=== PATIENT | female | born 1995 | race Two or more races ===

== ENCOUNTER 2024-06-03 10:00 | Outpatient (RCR) | payer MEDICAID, SELFPAY ==
[2024-06-03 10:40] VITALS: BP 109/66; PULSE 70; RESP 16; TEMP 36.9
--- NOTE | 2024-06-03 11:39 | XR_ITS ---
Examination: Biophysical profile, ultrasound Date and time of exam: June 03, 2024 1152 hours INDICATIONS: Diagnosis small for gestational age Technique: Multiple transabdominal sonographic images of the pelvis abdomen obtained. Attention is directed to the breathing movement, gross body movement, amniotic fluid volume and tone. Findings: Amniotic fluid index 3.1 cm Total biophysical profile is 6 of 8. breathing movement is 2. Gross body movement is 2. tone is 2. Qualitative amniotic fluid volume is 0 Impression: Biophysical profile is 6 of 8.
[2024-06-03] MEDS: BETAMET ACET/BETAMET NA PH (Celestone) 6 MG/ML VIAL 12 MG IM (13:36)
== END 2024-06-04 23:59 | disposition home or self-care (01) ==
LOC: S4S1 10:00
PROVIDERS: PCP Family Medicine; Referring Provider Nurse Practitioner Women's Health; Visit Provider Nurse Practitioner Women's Health
DX: O36.5930 Maternal care for other known or suspected poor fetal growth, third trimester, not applicable or unspecified (principal); Z3A.35 35 weeks gestation of pregnancy
CPT/HCPCS: 59025; 76819; 96372; J0702

== ENCOUNTER 2024-06-04 13:26 | Observation (INO) | payer MEDICAID, SELFPAY ==
[2024-06-04] VITALS (36 sets, daily range): BP systolic 96–111; BP diastolic 52–63; PULSE 63–79; RESP 16–98; TEMP 36.6–36.9; O2SAT 93–100; BMI 25.7
--- NOTE | 2024-06-04 13:36 | XR_ITS ---
Examination: Complete OB ultrasound greater than 14 weeks Date and time of exam: June 04, 2024 1344 hours INDICATIONS: Diagnosis small for gestational age, low amniotic fluid index 3.1 cm 1 ultrasound June 03, 2024 Findings: Viable intrauterine single fetus with single amniotic sac presentation cephalic Cardiac motion 143 BPM Placenta posterior grade 1 Umbilical cord insertion 3 vessel seen Amniotic fluid index 4.6 cm Cervix 3.4 cm closed Ovaries obscured by bowel gas. Composite estimated gestational age based on BPD, head circumference, abdominal circumference, femur length is 32 weeks 4 days Estimated weight 1881 g. Survey of intracranial anatomy, spinal anatomy, abdominal anatomy, four-chamber heart performed with no abnormalities identified. Impression: Viable intrauterine gestation cephalic presentation Amniotic fluid index 4.6 cm.
[2024-06-04] MEDS: BETAMET ACET/BETAMET NA PH (Celestone) 6 MG/ML VIAL 12 MG IM (14:15)
[2024-06-04 15:59] LABS: Basophils % (Auto) 0 % (0-2.5); Eosinophils % (Auto) 0 % (0-10); Hematocrit 32.6 % (36.0-46.0); Hemoglobin 10.7 g/dL (12.0-16.0); Immature Granulocytes % (Auto) 1 % (0-0); Immature Granulocytes Auto 0.18 Thou/mm3 (0.00-0.00); Lymphocytes # (Auto) 1.5 Thou/mm3 (1.0-4.8); Lymphocytes % (Auto) 8 % (10-50); Mean Corpuscular HGB Conc 32.8 g/dl (31.0-37.0); Mean Corpuscular Hemoglobin 26.3 pg (25.0-35.0); Mean Corpuscular Volume 80 fL (80-100); Monocytes # (Auto) 1.2 Thou/mm3 (0.0-0.8); Monocytes % (Auto) 6 % (0-12); Neutrophils # (Auto) 16.7 Thou/mm3 (1.8-7.7); Neutrophils % (Auto) 85 % (37-80); Nucleated Red Blood Cell % 0 /100 WBC (0); Platelet Count 239 Thou/mm3 (140-440); RDW Standard Deviation 44.6 fL (36.4-46.3); Red Blood Count 4.07 Miln/mm3 (4.00-5.20); White Blood Count 19.7 Thou/mm3 (3.6-11.0)
[2024-06-04 16:38] LABS: Syphilis Nonreactive (Nonreactive)
[2024-06-04] MEDS: RINGERS LACTATED 1000 ML 1,000 ML 100 ML IV (17:27)
[2024-06-04 18:06] LABS: ROM Kit Lot # 578010271; ROM Swab Mixed By: ASTOA1; Rupture of Fetal Membranes Negative (Negative); Swb Mxed in Solvent 1 min? Yes
[2024-06-05] VITALS (7 sets, daily range): BP systolic 102–111; BP diastolic 57–60; PULSE 61–79; RESP 16–18; TEMP 36.9
[2024-06-05] MEDS: RINGERS LACTATED 1000 ML 1,000 ML 100 ML IV (03:19)
--- NOTE | 2024-06-05 05:47 | PD.LDANTE ---
Documentation for date of: 06/04/24 OB Labor/Induct. HPI History of Present Illness : 4 Para: 2 Term pregnancies: 2 pregnancies: 0 Living children: 2 History of Abortions: Spontaneous and Elective: 1 History of Vaginal deliveries: 2 History of sections: No History of : No ANNA: 07/07/24 Gestational Age (weeks): 35 Gestational Age (days): 3 History of present illness: Patient is a [place]alander-speaking 29-year-old -0-1-2 history of vaginal delivery x 2 in the past who presented for nonstress test for gestational diabetes. She was seen 03 June and her fluid was 3.6. She was given an injection of betamethasone and told to come back on the . Her BING was 4.6. She is 35 3/7 weeks. The baby was measuring 32 weeks approximately 4 pounds. Patient was admitted overnight for observation, possible induction of labor if the fluid continues to be low. AmniSure was negative. History of Present Adequate Care: Yes Obstetrical complications: gestational diabetes Narrative: Baby has been measuring small according to [facility]. The plan was to induce at 38 weeks. Labs Maternal Blood Type: A Pos Labs: Positive: Rubella Titre, Negative: Hepatitis B, HIV, Chlamydia and Gonorrhea and Unknown: Group Beta Strep Review of Systems Constitutional Comments: Patient is alert and oriented x 3 she reports good movement she denies vaginal bleeding leaking fluid or contractions Past Medical History Surgical History SURGICAL: Negative Section Meds Home Medications and Allergies Home Medications ?Medication ?Instructions ?Recorded ?Confirmed ?Type vit no.95-ferrous 1 tab PO QDAY 06/04/24 06/04/24 History fumarate 28 mg-folic acid 800 mcg tablet () Allergies Allergy/AdvReac Type Severity Reaction Status Date / Time No Known Allergies Allergy Verified 06/04/24 15:05 OB Exam Physical Exam Vital signs: Temp Pulse Resp BP Pulse Ox O2 Del Method 98.4 F 64 16 107/59 L 98 Room Air 06/05/24 03:25 06/05/24 05:01 06/05/24 03:25 06/05/24 05:01 06/04/24 22:55 06/04/24 19:05 Constitutional Constitutional: no acute distress Routine Abdominal Exam Abdominal: Present soft and normoactive bowel sounds Comments: Fundal height approximately 30 weeks Detailed Labor and Delivery Exam Effacement (%): Thick Cervix position: mid station: -2 Consistency: firm Presentation: Vertex Membranes: intact monitor accelerations: 15x15 monitor decelerations: None terminal block assembler variability: Moderate (11-25) Contraction frequency (min): None Routine Extremities Exam Comments: No significant edema or even erythema of lower extremities OB Results Labs 06/04/24 15:43 Labs: Short CBC 06/04/24 Range/Units 15:43 WBC 19.7 H (3.6-11.0) Thou/mm3 Hgb 10.7 L (12.0-16.0) g/dL Hct 32.6 L (36.0-46.0) % Plt Count 239 (140-440) Thou/mm3 OB Assessment & Plan Assessment and Plan (1) : Status: Acute (2) Oligohydramnios antepartum: Status: Acute (3) Small for gestational age fetus: Status: Acute Assessment and plan: Patient has been followed at [facility] for small for gestational age infant. Baby currently measuring 4 pounds approximately and 32-4/7 weeks. Given betamethasone 318 and 319. Repeat ultrasound today for fluid check. OB Ultrasound Indication Indication: Check BING OB Ultrasound Ultrasound technique: transabdominal Gestational sac assessment: Presence, location, size, shape: Ultrasounds reviewed revealing BING of 3.1 on 05/24/2024 and BING of 4.6 on 06/04/2024 weight measuring 32-4/7 weeks (1) Qualifiers: Weeks of gestation: 35 weeks Qualified Code(s): Z3A.35 - 35 weeks gestation of (2) Oligohydramnios antepartum Qualifiers: Fetus number: single or unspecified fetus Qualified Code(s): O41.00X0 - Oligohydramnios, unspecified trimester, not applicable or unspecified
--- NOTE | 2024-06-05 07:00 | XR_ITS ---
Examination: Complete OB ultrasound greater than 14 weeks Date and time of exam: June 05, 2024 0830 hours INDICATIONS: labor, diagnosis low amniotic fluid, diagnosis growth retardation Findings: Viable intrauterine single fetus with single amniotic sac presentation cephalic spine maternal right Cardiac motion 129 BPM Placenta posterior grade 2 Umbilical cord insertion 3 vessel seen Amniotic fluid index 3.3 cm Cervix 4.3 cm closed Ovaries obscured by bowel gas. Composite estimated gestational age based on BPD, head circumference, abdominal circumference, femur length is 33 weeks 6 days Estimated weight 2095 g. Survey of intracranial anatomy, spinal anatomy, abdominal anatomy, four-chamber heart performed with no abnormalities identified. Impression: Viable intrauterine gestation cephalic presentation Amniotic fluid index 3.3 cm.
[2024-06-05 07:11] LABS: Basophils % (Auto) 0 % (0-2.5); Eosinophils % (Auto) 0 % (0-10); Hematocrit 31.2 % (36.0-46.0); Hemoglobin 10.2 g/dL (12.0-16.0); Immature Granulocytes % (Auto) 1 % (0-0); Immature Granulocytes Auto 0.19 Thou/mm3 (0.00-0.00); Lymphocytes # (Auto) 1.4 Thou/mm3 (1.0-4.8); Lymphocytes % (Auto) 9 % (10-50); Mean Corpuscular HGB Conc 32.7 g/dl (31.0-37.0); Mean Corpuscular Hemoglobin 26.4 pg (25.0-35.0); Mean Corpuscular Volume 81 fL (80-100); Monocytes # (Auto) 0.7 Thou/mm3 (0.0-0.8); Monocytes % (Auto) 5 % (0-12); Neutrophils # (Auto) 13.9 Thou/mm3 (1.8-7.7); Neutrophils % (Auto) 85 % (37-80); Nucleated Red Blood Cell % 0 /100 WBC (0); Platelet Count 215 Thou/mm3 (140-440); RDW Standard Deviation 45.3 fL (36.4-46.3); Red Blood Count 3.87 Miln/mm3 (4.00-5.20); White Blood Count 16.3 Thou/mm3 (3.6-11.0)
--- NOTE | 2024-06-05 08:17 | XR_ITS ---
Examination: Biophysical profile, ultrasound Date and time of exam: June 05, 2024 0849 hours INDICATIONS: Diagnosis labor, diagnosis low amniotic fluid index, diagnosis growth retardation Technique: Multiple transabdominal sonographic images of the pelvis abdomen obtained. Attention is directed to the breathing movement, gross body movement, amniotic fluid volume and tone. Findings: Amniotic fluid index 3.2 cm Total biophysical profile is 6 of 8. breathing movement is 2. Gross body movement is 2. tone is 2. Qualitative amniotic fluid volume is 0 Impression: Biophysical profile is 6 of 8.
--- NOTE | 2024-06-05 10:10 | ESDS_ITS ---
DS: Providers Provider Date of admission: 06/04/24 15:33 Primary care physician: Physician No Primary/Family Admitting Provider: Radha Wong MD ([facility]) Attending Provider on Admission: Enrique Sanchez MD Attending Provider on DC: Enrique Sanchez MD Discharging Provider: Enrique Sanchez MD DS: Diagnosis Problem List Completed Was Problem List Reviewed/Reconciled?: Yes Summary/Hosp Course Brief History: 29 y/o @35w2d here admitted for observation for oligohydramnios. Patient has recieved 2 doses of betamethasone . Pt has been following up with MFMfor weekly dopplers for IUGR ( EFW 9%, AC 7%). she has an appointment today with [facility] . Pt denied any bleeding , leaking or contractions . The FHT category 1 over night , occasional variable. Today the Ultrasound was repeated , MVP 2cm. Given amnisure was negative, no suspicion of PROM. Patient per ACOG will be induced for oligohydramnios at 36 weeks. IUGR with normal dopplers can wait for 38 weeks. She has an appointemnt for MFM today , patient will attend [facility] appointemnt today , depending upon the dopplers and BING , patient will be booked for IOL Status at Discharge Cognitive/behavioral status at discharge: stable Time Spent with Patient Time attestation: Total time spent providing and/or coordinating discharge services: Exam Vital Signs Temp Pulse Resp BP Pulse Ox O2 Del Method 98.4 F 79 18 111/60 98 Room Air 06/05/24 06:56 06/05/24 09:05 06/05/24 06:56 06/05/24 09:05 06/04/24 22:55 06/04/24 19:05 Discharge Plan Plan Patient Disposition: HOME (Self Care) Prescriptions/Referrals Prescriptions/Med Rec: No Action PNV cmb#95-ferrous fumarate-FA [] 28 mg iron- 800 mcg tablet 1 tab PO QDAY Referrals: No Primary/Family,Physician [Primary Care Provider] - Patient/Caregiver Discharge Instructions Print Language: Polish Stand Alone Forms: Martha Award Info., Patient Portal Info Letter Discharge Order Discharge Orders: Discharge (Routine); Ordered 06/05/24 Ordered By: Enrique Sanchez Planned Discharge Date 06/05/24
== END 2024-06-05 10:38 | disposition home or self-care (01) ==
PROVIDERS: Admitting Provider Obstetrics & Gynecology; Referring Provider Obstetrics & Gynecology; Visit Provider Obstetrics & Gynecology
DX: O41.03X0 Oligohydramnios, third trimester, not applicable or unspecified (principal); O24.419 Gestational diabetes mellitus in pregnancy, unspecified control; O36.5930 Maternal care for other known or suspected poor fetal growth, third trimester, not applicable or unspecified; Z3A.35 35 weeks gestation of pregnancy
CPT/HCPCS: 36415; 59025; 59899; 76805; 76819; 84112; 85025; 86780; 86850; 86900; 86901; 87081; 96360; 96361; 96372; J0702; J7120

== ENCOUNTER 2024-06-11 13:01 | Outpatient (RCR) | payer MEDICAID, SELFPAY ==
--- NOTE | 2024-06-11 13:35 | XR_ITS ---
Examination: Biophysical profile, ultrasound Date and time of exam: June 11, 2024 1340 hours INDICATIONS: Small for gestational age diagnosis, also diagnosis history low amniotic fluid index Technique: Multiple transabdominal sonographic images of the pelvis abdomen obtained. Attention is directed to the breathing movement, gross body movement, amniotic fluid volume and tone. Findings: Amniotic fluid index 3.5 cm Total biophysical profile is 6 of 8. breathing movement is 2. Gross body movement is 2. tone is 2. Qualitative amniotic fluid volume is 0 Impression: Biophysical profile is 6 of 8.
[2024-06-11 14:30] VITALS: BP 120/59; PULSE 81; RESP 18; TEMP 36.8
== END 2024-06-11 23:59 | disposition home or self-care (01) ==
LOC: S4S1 13:01
PROVIDERS: Referring Provider Nurse Practitioner Women's Health; Visit Provider Nurse Practitioner Women's Health
DX: O36.5930 Maternal care for other known or suspected poor fetal growth, third trimester, not applicable or unspecified (principal); Z3A.36 36 weeks gestation of pregnancy
CPT/HCPCS: 59025; 76819; J2795; J3010

== ENCOUNTER 2024-06-11 15:33 | Inpatient (IN) | payer MEDICAID, SELFPAY ==
[2024-06-11] VITALS (95 sets, daily range): BP systolic 0–122; BP diastolic 0–81; PULSE 57–87; RESP 18; TEMP 36.7; O2SAT 96–99; BMI 26.0
--- NOTE | 2024-06-11 16:43 | ESHP_ITS ---
Documentation for date of: 06/11/24 OB Labor/Induct. HPI History of Present Illness Chief complaint: 28 y/o 36w 2d admitted for Oligohydramnios, FGR and GDM : 4 Para: 2 Term pregnancies: 2 pregnancies: 0 Living children: 2 History of Abortions: Spontaneous and Elective: 1 History of Vaginal deliveries: 2 History of sections: No History of : No ANNA: 06/06/24 Gestational Age (weeks): 36 Gestational Age (days): 2 Indication for induction: medical complication History of present illness: 28 y/o 36w 2d presents to L&D for an NST and BPP, NST reactive, however BPP is 6/8 BING 3.[address] Sanchez and was decided that it is patient's best interest to induce today due to multiple risk factors Oligohydranmnios, FGR at 9%ile and GDM. [facility] sono from 06/05/24 pt's BING was 5.97, now significantly has dropped to 3.5. Pt received betamethasone x2 on 06/03 and 06/04. Pt has been having biweekly NST and weekly BPPs, pt also has weekly dopplers at [facility] which have been normal. GBS is positive. Pt also has anemia. Pt has a hx of nvdx 2 and 1 SAB. EFW 2400g. 05/23/24: [facility] sono fetus is FGR 9%ile, AC is 7%ile, umbilical artery dopplers are normal, BPP 8/8.? 06/05/24: [facility] sono SIUP 35w 3, cephalic, Placenta posterior, no previa, Borderline Oligohydramnios, BING is 5.97 cm. BPP is 8/8, umbilical artery dopplers are normal. Continue biweekly NST, Pt encourage to have more oral hydration, Repeat BING in 1 week. Continue FKC, if FGR and abnormal dopplers plan to deliver by 37 weeks. History of Present Dating criteria: based on LMP only Adequate Care: Yes Ultrasounds: abnormal US findings ( growth at 9%ile, and AC is at 7%ile) Obstetrical complications: gestational diabetes (Diet ) and growth restriction Medical complications: other (Oligohydramnios and Anemia) Labs Maternal Blood Type: A Pos Labs: Positive: Rubella Titre and Group Beta Strep, Negative: RPR, Hepatitis B, HIV, Chlamydia and Gonorrhea and Unknown: Covid-19 Review of Systems Review of Systems Systems Reviewed: All systems reviewed, normal except as documented Past Medical History Surgical History SURGICAL: Negative Section Meds Home Medications and Allergies Home Medications ?Medication ?Instructions ?Recorded ?Confirmed ?Type vit no.95-ferrous 1 tab PO QDAY 06/04/2405/18 History fumarate 28 mg-folic acid 800 mcg tablet () Allergies Allergy/AdvReac Type Severity Reaction Status Date / Time No Known Allergies Allergy Verified 06/11/24 16:01 OB Exam Physical Exam Vital signs: Pulse BP 69 108/74 06/11/24 16:43 06/11/24 16:43 Constitutional Constitutional: no acute distress Routine HEENT Exam Head: Present normocephalic and atraumatic Eye: Present EOMI, PERRL and normal accommodation ENT: Present mucous membranes moist Routine Neck Exam Neck: Present full ROM Routine Respiratory Exam Respiratory: Absent respiratory distress Routine Cardiovascular Exam Cardiovascular: Present RRR Routine Abdominal Exam Abdominal: Present soft Comments: Gravid Uterus EFW 2400g Routine Exam External: Present normal urethra appearance; Absent lesions Detailed Labor and Delivery Exam Dilation (cm): 1 Effacement (%): thick Cervix position: posterior station: -3 Consistency: medium Presentation: Vertex Membranes: intact Baseline heart rate: 130 monitor accelerations: 15x15 monitor decelerations: None terminal operator variability: Moderate (11-25) Routine Extremities Exam Extremities: Present full ROM Routine Back/Spine/Pelvis Exam Back/Spine: Present full ROM Routine Skin Exam Skin: Present intact, dry and warm Routine Neurological Exam Neurological: Present alert, oriented X3 and CN II-XII intact Routine Psychiatric Exam Psychiatric: Present normal affect and normal thought process OB Results Labs 06/11/24 15:50 OB Assessment & Plan Assessment and Plan (1) Oligohydramnios antepartum: Status: Acute (2) Poor growth affecting management of mother in third trimester: Status: Acute (3) Diet controlled gestational diabetes mellitus (GDM): Status: Acute (4) with 36 completed weeks gestation: Status: Acute (5) Anemia affecting in third trimester: Status: Acute Additional Plan Induction method: per misoprostol protocol Plan: induction, anticipate NVD, GBS prophylaxis tx and consult prn Additional Plan Comment: Routine admit orders Consult anesthesia for an epidural Continuous EFM Dr. Sanchez updated (1) Oligohydramnios antepartum Qualifiers: Fetus number: single or unspecified fetus Qualified Code(s): O41.00X0 - Oligohydramnios, unspecified trimester, not applicable or unspecified (2) Poor growth affecting management of mother in third trimester Qualifiers: Fetus number: single or unspecified fetus Qualified Code(s): O36.5930 - Maternal care for other known or suspected poor growth, third trimester, not applicable or unspecified (3) Diet controlled gestational diabetes mellitus (GDM) Qualifiers: Trimester: third trimester Qualified Code(s): O24.410 - Gestational diabetes mellitus in , diet controlled
[2024-06-11] MEDS: MISOPROSTOL 50 mCg TABLET PO ×2 (16:48→20:59)
[2024-06-11 16:58] LABS: Basophils % (Auto) 0 % (0-2.5); Eosinophils # (Auto) 0.1 Thou/mm3 (0.0-0.5); Eosinophils % (Auto) 1 % (0-10); Hematocrit 34.7 % (36.0-46.0); Hemoglobin 11.4 g/dL (12.0-16.0); Immature Granulocytes % (Auto) 1 % (0-0); Immature Granulocytes Auto 0.09 Thou/mm3 (0.00-0.00); Lymphocytes # (Auto) 2.1 Thou/mm3 (1.0-4.8); Lymphocytes % (Auto) 16 % (10-50); Mean Corpuscular HGB Conc 32.9 g/dl (31.0-37.0); Mean Corpuscular Hemoglobin 25.8 pg (25.0-35.0); Mean Corpuscular Volume 79 fL (80-100); Monocytes % (Auto) 8 % (0-12); Neutrophils # (Auto) 9.6 Thou/mm3 (1.8-7.7); Neutrophils % (Auto) 74 % (37-80); Nucleated Red Blood Cell % 0 /100 WBC (0); Platelet Count 245 Thou/mm3 (140-440); RDW Standard Deviation 44.5 fL (36.4-46.3); Red Blood Count 4.42 Miln/mm3 (4.00-5.20); White Blood Count 12.9 Thou/mm3 (3.6-11.0)
[2024-06-11] MEDS: Ampicillin Inj 2,000 MG in SODIUM CHLORIDE 0.9% (POP) 100 ML 200 MG IV (17:04)
[2024-06-11] MEDS: RINGERS LACTATED 1000 ML 1,000 ML 100 ML IV (20:14)
[2024-06-11] MEDS: Ampicillin Inj 1,000 MG in SODIUM CHLORIDE 0.9% (Popper) 50 ML 50 MG IV (20:59)
[2024-06-12] VITALS (242 sets, daily range): BP systolic 0–148; BP diastolic 0–99; PULSE 54–100; RESP 17–19; TEMP 36.6–36.9; O2SAT 82–100
[2024-06-12] MEDS: Ampicillin Inj 1,000 MG in SODIUM CHLORIDE 0.9% (Popper) 50 ML 50 MG IV ×5 (00:59→18:17)
[2024-06-12] MEDS: MISOPROSTOL 50 mCg TABLET PO ×2 (00:59→05:02)
[2024-06-12 03:59] LABS: Syphilis Nonreactive (Nonreactive)
--- NOTE | 2024-06-12 10:09 | PD.LDPN ---
Documentation for date of: 06/12/24 OB Labor Progress Note Pain Control Pain control: tolerating well Pelvic Exam Dilation (cm): 3 Effacement (%): 60 station: -3 Amniotic membrane status: Intact Contractions Monitor mode: External Contraction frequency: 4-8 Contraction duration: 40-60 Contraction phase: Contraction Contraction intensity: Moderate Status status: Category l Assessment and Plan Assessment: induction ongoing Plan OB labor note: begin Pitocin augmentation Comments: Doing well, making cervical change after 4 doses of cytotec Continue with pitocin per protocol Updated Dr. Sanchez
[2024-06-12] MEDS: OXYTOCIN in NS 30 units 30 UNIT/500 ML BAG IV (10:18)
--- NOTE | 2024-06-12 15:48 | PD.LDPN ---
Documentation for date of: 06/12/24 OB Labor Progress Note Pain Control Pain control: epidural Pelvic Exam Dilation (cm): 8 Effacement (%): 80 station: 0 Amniotic membrane status: Ruptured (AROM- clear bloody) Contractions Monitor mode: External Contraction frequency: 2-3 Contraction duration: 40-60 Contraction phase: Contraction Contraction intensity: Strong Status status: Category l Assessment and Plan Assessment: induction ongoing Plan OB labor note: continuous present management Comments: AROM performed clear to bloody fluids Pt is comfortable with an epidural Anticipate
[2024-06-12] MEDS: RINGERS LACTATED 1000 ML 1,000 ML 100 ML IV (16:25)
[2024-06-12] MEDS: OXYTOCIN in NS 20 units 20 UNIT/1,000 ML BAG 125 UNIT IV (19:12)
[2024-06-12] MEDS: TRANEXAMIC ACID 1,000 MG IVPB 1,000 MG/100 ML BAG 200 MG IV (19:12)
[2024-06-12] MEDS: MINERAL OIL 30 ML UDC TOP (19:12)
--- NOTE | 2024-06-12 19:47 | PD.LDDELS ---
Data (Solorzano) Data Hx Section: No Maternal Blood Type: A Pos Rubella Titre: Positive RPR: Non-reactive Labs: Positive: Group Beta Strep, Negative: RPR, Hepatitis B, HIV, Chlamydia and Gonorrhea and Unknown: Herpes Type 1 and Herpes Type 2 : 4 Para: 2 Term: 2 : 0 Livin : 1 Delivery Data (Solorzano) Labor Data Stimulated/Augmented: No Induction: Yes Method: Cytotec ROM Date: 06/12/24 ROM Time: 15:47 Rupture Type: AROM Amniotic Fluid: Clear Delivery Data EDC: 07/07/24 EDC calculated by:: LMP Labor Onset Stage 1 Date: 06/12/24 Labor Onset Stage 1 Time: 15:00 Labor Onset Stage 2 Date: 06/12/24 Labor Onset Stage 2 Time: 18:40 Delivery Date: 06/12/24 Delivery Time: 18:46 Gestational age (weeks): 36 Gestational age (days): 3 Placenta Delivery Date: 06/12/24 Placenta Delivery Time: 18:52 Delivered by: Tia Yoder Delivery nurse: Leidy Jernigan Certified Ophthalmic Technician at delivery: No Support person(s) at delivery: FOB Other staff at delivery: Nurse Other staff at delivery: Nurse Other staff at delivery: Sera Roy Other staff at delivery: Rebecca Nicole Delivery Method Delivery: Vaginal Delivery Type: Spontaneous Presentation: Vertex Position: OA Anesthesia Type Primary Anesthesia: Epidural Delivery Room Medications Intrapartum Medications: Antibiotics Other Intrapartum Medications: No Post Delivery Medications N/A: No Placenta Placenta Delivery: Spontaneous Placenta Cultures Obtained: No Placenta Sent for Examination: No Cord Sample: Cord Blood Obtained Episiotomy Episiotomy: None Lacerations #1: Perineal: 2nd degree Perineal repair Sutures used for repair: 3.0 Vicryl (CT) EBL Estimated blood loss (ml): 200 Umbilical Cord Umbilical Vessels: 3 Nuchal Cord: Not Applicable Body Cord: Not Applicable Additional Procedures of a viable female . Infant's anterior shoulder delivered with gentle downward traction subsequent deliver the posterior shoulder on the body without complications. placed on mother's abdomen. Vigorous cry upon delivery. Cord was clamped. Cut by FOB. Cord blood obtained. Three-vessel cord noted. Placenta expelled spontaneously and intact. Patient sustained a second-degree perineal laceration. Repaired using a 3-[address] suture. Excellent hemostasis achieved after vigorous fundal massage and removal of clots from the posterior fornix. EBL 200. Sponge and needle count correct. Mother and baby stable, skin to skin and bonding in LDR. Data (Solorzano) Bennet Data Infant Gender: Female Weight Grams: 2035 1 Minute Total: 9 5 Minute Total: 9
[2024-06-13 00:47] VITALS: BP 109/68; PULSE 68; RESP 18; TEMP 36.5; O2SAT 95
[2024-06-13 00:48] LABS: Basophils # (Auto) 0.1 Thou/mm3 (0.0-0.2); Basophils % (Auto) 0 % (0-2.5); Eosinophils # (Auto) 0.1 Thou/mm3 (0.0-0.5); Eosinophils % (Auto) 0 % (0-10); Hematocrit 32.6 % (36.0-46.0); Hemoglobin 10.9 g/dL (12.0-16.0); Immature Granulocytes % (Auto) 1 % (0-0); Immature Granulocytes Auto 0.08 Thou/mm3 (0.00-0.00); Lymphocytes # (Auto) 1.9 Thou/mm3 (1.0-4.8); Lymphocytes % (Auto) 12 % (10-50); Mean Corpuscular HGB Conc 33.4 g/dl (31.0-37.0); Mean Corpuscular Hemoglobin 26.1 pg (25.0-35.0); Mean Corpuscular Volume 78 fL (80-100); Monocytes # (Auto) 1.1 Thou/mm3 (0.0-0.8); Monocytes % (Auto) 7 % (0-12); Neutrophils # (Auto) 13.4 Thou/mm3 (1.8-7.7); Neutrophils % (Auto) 81 % (37-80); Nucleated Red Blood Cell % 0 /100 WBC (0); Platelet Count 215 Thou/mm3 (140-440); RDW Standard Deviation 43.1 fL (36.4-46.3); Red Blood Count 4.18 Miln/mm3 (4.00-5.20); White Blood Count 16.6 Thou/mm3 (3.6-11.0)
[2024-06-13] MEDS: HYDROcodone/APAP 5/325 TABLET 2 TAB PO (02:06)
[2024-06-13 04:00] VITALS: BP 114/72; PULSE 72; RESP 17; TEMP 36.8; O2SAT 96
--- NOTE | 2024-06-13 06:52 | ESDS_ITS ---
DS: Providers Provider Date of admission: 06/11/24 15:33 Primary care physician: Dennis Arana MD Admitting Provider: Enrique Sanchez MD Attending Provider on Admission: Tia Yoder CNM Attending Provider on DC: Tia Yoder CNM Discharging Provider: Tia Yoder CNM Anticipated date of discharge: 06/13/24 DS: Diagnosis Discharge Diagnosis (1) Normal spontaneous vaginal delivery: Status: Acute (2) Encounter for care of lactating mother: Status: Acute (3) with 36 completed weeks gestation: Status: Acute (4) Oligohydramnios antepartum: Status: Acute (5) Encounter for induction of labor: Status: Acute Problem List Completed Was Problem List Reviewed/Reconciled?: Yes Summary/Hosp Course Brief History: 28 y/o 36w 2d presents to L&D for an NST and BPP, NST reactive, however BPP is 6/8 BING 3.[address] Sanchez and was decided that it is patient's best interest to induce today due to multiple risk factors Oligohydranmnios, FGR at 9%ile and GDM. [facility] sono from 06/05/24 pt's BING was 5.97, now significantly has dropped to 3.5. Pt received betamethasone x2 on 06/03 and 06/04. Pt has been having biweekly NST and weekly BPPs, pt also has weekly dopplers at [facility] which have been normal. GBS is positive. Pt also has anemia. Pt has a hx of nvdx 2 and 1 SAB. EFW 2400g. 05/23/24: [facility] sono fetus is FGR 9%ile, AC is 7%ile, umbilical artery dopplers are normal, BPP 8/8.? 06/05/24: [facility] sono SIUP 35w 3, cephalic, Placenta posterior, no previa, Borderline Oligohydramnios, BING is 5.97 cm. BPP is 8/8, umbilical artery dopplers are normal. Continue biweekly NST, Pt encourage to have more oral hydration, Repeat BING in 1 week. Continue FKC, if FGR and abnormal dopplers plan to deliver by 37 weeks. 06/12/24: of a viable female infant. 's anterior shoulder delivered with gentle downward traction subsequent deliver the posterior shoulder on the body without complications. Infant placed on mother's abdomen. Vigorous cry upon delivery. Cord was clamped. Cut by FOB. Cord blood obtained. Three- vessel cord noted. Placenta expelled spontaneously and intact. Patient sustained a second-degree perineal laceration. Repaired using a 3-[address] suture. Excellent hemostasis achieved after vigorous fundal massage and removal of clots from the posterior fornix. EBL 200. Sponge and needle count correct. Mother and baby stable, skin to skin and bonding in LDR. 06/13/24: PPD#1 patient is stable and afebrile doing well. Patient denies dizziness shortness of breath. Ambulating to the bathroom voiding. Uterus is nontender fundus firm minimal lochia. Baby is doing well stable blood sugars. Discharge instructions given. Patient to follow-up with Tia Yoder CNM in 3 weeks Peripartum Data Delivery Method: Normal Vaginal Delivery Episiotomy Description: None Laceration Description: yes and see Delivery Summary complications: none 1: Gender: Female Disposition of : home Status at Discharge Cognitive/behavioral status at discharge: Alert and oriented x 3 Functional status at discharge: independent ambulation Overall status at discharge: patient is progressing back to baseline Time Spent with Patient Time attestation: Total time spent providing and/or coordinating discharge services: Time spent: Greater than 30 minutes Exam Vital Signs Temp Pulse Resp BP Pulse Ox O2 Del Method 98.2 F 76 17 136/99 H 100 Room Air 06/12/24 18:00 06/12/24 19:00 06/12/24 18:00 06/12/24 19:00 06/12/24 18:41 06/11/24 19:15 Constitutional Constitutional: no acute distress Routine HEENT Exam Head: Present normocephalic and atraumatic Eye: Present EOMI, PERRL and normal accommodation ENT: Present mucous membranes moist Routine Neck Exam Neck: Present supple, full ROM and trachea midline Routine Respiratory Exam Respiratory: Present chest non-tender, lungs clear, normal breath sounds and no resp distress Routine Cardiovascular Exam Cardiovascular: Present RRR Routine Abdominal Exam Abdominal: Present soft and normoactive bowel sounds; Absent tenderness or distended Comments: Uterus nontender Fundus firm Routine Exam Patient deferred: external exam Routine Extremities Exam Extremities: Present full ROM Routine Back/Spine/Pelvis Exam Back/Spine: Present full ROM Routine Skin Exam Skin: Present intact, dry and warm Routine Neurological Exam Neurological: Present alert, oriented X3 and CN II-XII intact Routine Psychiatric Exam Psychiatric: Present normal affect and normal thought process Discharge Plan Plan Patient Disposition: HOME (Self Care) Patient condition on transfer: Stable Prescriptions/Referrals Prescriptions/Med Rec: New ibuprofen 800 mg tablet 800 mg PO Q6H MDD 4 PRN (Reason: pain) Qty: 90 0RF docusate sodium [Colace] 100 mg capsule 100 mg PO BID Qty: 60 0RF lanolin 50 % ointment 1 applic topical TID PRN (Reason: skin irritation) Qty: 15 0RF Continued PNV cmb#95-ferrous fumarate-FA [] 28 mg iron- 800 mcg tablet 1 tab PO QDAY Referrals: No Primary/Family,Physician [Referring Provider] - Patient/Caregiver Discharge Instructions Meds to Beds: No Discharge Activity: activity as tolerated Other Discharge Activity Instructions:: Follow-up with Tia Yoder CNM in 3 weeks Education Materials: After a Vaginal , : Caring for Yourself Print Language: Monegasque Stand Alone Forms: [employer] Award Info., Patient Portal Info Letter Discharge Order Discharge Orders: Discharge (Routine); Ordered 06/13/24 Ordered By: Tia Yoder Planned Discharge Date 06/13/24 (4) Oligohydramnios antepartum Qualifiers: Fetus number: single or unspecified fetus Qualified Code(s): O41.00X0 - Oligohydramnios, unspecified trimester, not applicable or unspecified
[2024-06-13 08:00] VITALS: BP 119/69; PULSE 66; RESP 16; TEMP 36.6; O2SAT 98
[2024-06-13] MEDS: DOCUSATE SOD 100 MG CAPSULE PO (08:27)
[2024-06-13 12:10] VITALS: BP 109/78; PULSE 78; RESP 16; TEMP 36.3; O2SAT 97
--- NOTE | 2024-06-13 14:50 | PC.NURSE ---
1445: RN SPOKE WITH JIAN ESPANA PATIENT MAY DC AT HOURS POST ASSISTANT MAINTENANCE MANAGER MAY CHANGE DC ORDER TIME
[2024-06-13 16:50] VITALS: BP 120/76; PULSE 86; RESP 16; TEMP 36.8; O2SAT 98
[2024-06-13] MEDS: ACETAMINOPHEN 325 MG TABLET 650 MG PO (16:58)
[2024-06-13 20:00] VITALS: BP 114/69; PULSE 68; RESP 16; TEMP 37; O2SAT 98
--- NOTE | 2024-06-13 20:11 | ESPR_ITS ---
Subjective Subjective Interval history: Patient was rounded on this morning by Cheri VILLAR. Patient was to go home this evening however she scored a little high on the depression risk scale and no social work liason is able to see her. Her baby is still in the nursery at 36 weeks. Patient will stay overnight to be discharged in the morning once she is evaluated by social work. Exam Vital Signs Temp Pulse Resp BP Pulse Ox O2 Del Method 98.2 F 86 16 120/76 98 Room Air 06/13/24 16:50 06/13/24 16:50 06/13/24 16:50 06/13/24 16:50 06/13/24 16:50 06/13/24 16:50 Objective Labs 06/13/24 00:35 Labs: Laboratory Results - last 24 hr 06/13/24 00:35 WBC 16.6 H RBC 4.18 Hgb 10.9 L Hct 32.6 L MCV 78 L MCH 26.1 MCHC 33.4 RDW Std Deviation 43.1 Plt Count 215 D Neut % (Auto) 81 H Lymph % (Auto) 12 Lawrence % (Auto) 7 Eos % (Auto) 0 Baso % (Auto) 0 Neut # (Auto) 13.4 H Lymph # (Auto) 1.9 Lawrence # (Auto) 1.1 H Eos # (Auto) 0.1 Baso # (Auto) 0.1 Immature Gran # (Auto) 0.08 H Absolute Nucleated RBC 0.00 Immature Gran % 1 H Nucleated RBC % 0 Assessment & Plan Problem List (1) Normal spontaneous vaginal delivery: Status: Acute (2) Encounter for care of lactating mother: Status: Acute (3) with 36 completed weeks gestation: Status: Acute (4) Oligohydramnios antepartum: Status: Acute (5) Encounter for induction of labor: Status: Acute Time Spent With Patient Time: Total time spent is greater than 50% in coordination of care (as documented) at patient's floor/unit and/or counseling patient:
[2024-06-14 04:16] VITALS: BP 111/71; PULSE 67; RESP 16; TEMP 36.6; O2SAT 98
--- NOTE | 2024-06-14 07:30 | PD.LDPPPRG ---
Subjective Subjective Interval history: Delivery type: , patient screened positive on depression screen, awaiting director of social media marketing/behavioral health consult today Patient doing well this morning. No acute complaints. Ambulating, tolerating p.o. and voiding without difficulty. HTN/Pre-Eclampsia screen: No chest pain, shortness of breath, headache, visual changes, epigastric or right upper quadrant pain. Breast-feeding, lochia diminishing. Bowel: Flatus+/ BM+ Exam Vital Signs Temp Pulse Resp BP Pulse Ox O2 Del Method 97.8 F 67 16 111/71 98 Room Air 06/14/24 04:16 06/14/24 04:16 06/14/24 04:16 06/14/24 04:16 06/14/24 04:16 06/14/24 04:16 Constitutional Constitutional: no acute distress Routine HEENT Exam Head: Present normocephalic and atraumatic Eye: Present EOMI and PERRL ENT: Present mucous membranes moist Routine Neck Exam Neck: Present supple and trachea midline Routine Respiratory Exam Respiratory: Present chest non-tender, lungs clear, normal breath sounds and no resp distress Routine Cardiovascular Exam Cardiovascular: Present RRR Routine Abdominal Exam Abdominal: Present soft and normoactive bowel sounds Routine Extremities Exam Extremities: Present full ROM Routine Skin Exam Skin: Present intact, dry and warm Routine Neurological Exam Neurological: Present alert, oriented X3 and CN II-XII intact Routine Psychiatric Exam Psychiatric: Present normal affect and normal thought process Objective Labs 06/13/24 00:35 Assessment & Plan Problem List (1) Normal spontaneous vaginal delivery: Status: Acute Assessment and plan: PPD/POD#2 1. Continue routine care 2. Transition to PO meds. 3. Encourage to ambulate/ breast-feed 4. Anticipate discharge home today after director of social media marketing consult is completed (2) Encounter for care of lactating mother: Status: Acute (3) with 36 completed weeks gestation: Status: Acute (4) Oligohydramnios antepartum: Status: Acute (5) Encounter for induction of labor: Status: Acute Time Spent With Patient Time: Total time spent is greater than 50% in coordination of care (as documented) at patient's floor/unit and/or counseling patient:
--- NOTE | 2024-06-14 07:31 | ESDS_ITS ---
DS: Providers Provider Date of admission: 06/11/24 15:33 Primary care physician: Dennis Arana MD Admitting Provider: Enrique Sanchez MD Attending Provider on Admission: Tom Zhao MD Consults: 06/12/24 19:58 Referral Routine Comment: Attending Provider on DC: Tom Zhao MD Discharging Provider: Tom Zhao MD DS: Diagnosis Discharge Diagnosis (1) Normal spontaneous vaginal delivery: Status: Acute (2) depression: Status: Acute Problem List Completed Was Problem List Reviewed/Reconciled?: Yes Summary/Hosp Course Brief History: 28 y/o 36w 2d presents to L&D for an NST and BPP, NST reactive, however BPP is 6/8 BING 3.2 Oligohydramnios. Consulted with Dr. Sanchez and was decided that it is patient's best interest to induce today due to multiple risk factors Oligohydranmnios, FGR at 9%ile and GDM. [facility] sono from 06/05/24 pt's BING was 5.97, now significantly has dropped to 3.5. Pt received betamethasone x2 on 06/03 and 06/04. Pt has been having biweekly NST and weekly BPPs, pt also has weekly dopplers at [facility] which have been normal. GBS is positive. Pt also has anemia. Pt has a hx of nvdx 2 and 1 SAB. EFW 2400g. 05/23/24: [facility] sono fetus is FGR 9%ile, AC is 7%ile, umbilical artery dopplers are normal, BPP 8/8.? 06/05/24: [facility] sono SIUP 35w 3, cephalic, Placenta posterior, no previa, Borderline Oligohydramnios, BING is 5.97 cm. BPP is 8/8, umbilical artery dopplers are normal. Continue biweekly NST, Pt encourage to have more oral hydration, Repeat BING in 1 week. Continue FKC, if FGR and abnormal dopplers plan to deliver by 37 weeks. 06/12/24: of a viable female infant. 's anterior shoulder delivered with gentle downward traction subsequent deliver the posterior shoulder on the body without complications. placed on mother's abdomen. Vigorous cry upon delivery. Cord was clamped. Cut by FOB. Cord blood obtained. Three- vessel cord noted. Placenta expelled spontaneously and intact. Patient sustained a second-degree perineal laceration. Repaired using a 3-[address] suture. Excellent hemostasis achieved after vigorous fundal massage and re moval of clots from the posterior fornix. EBL 200. Sponge and needle count correct. Mother and baby stable, skin to skin and bonding in LDR. 06/13/24: PPD#1 patient is stable and afebrile doing well. Patient denies dizziness shortness of breath. Ambulating to the bathroom voiding. Uterus is nontender fundus firm minimal lochia. Baby is doing well stable blood sugars. Discharge instructions given. Patient to follow-up with Tia Yoder CNM in 3 weeks Peripartum Data Delivery Method: Normal Vaginal Delivery Episiotomy Description: None Time Spent with Patient Time attestation: Total time spent providing and/or coordinating discharge services: Exam Vital Signs Temp Pulse Resp BP Pulse Ox O2 Del Method 97.8 F 67 16 111/71 98 Room Air 06/14/24 04:16 06/14/24 04:16 06/14/24 04:16 06/14/24 04:16 06/14/24 04:16 06/14/24 04:16 Discharge Plan Plan Patient Disposition: HOME (Self Care) Patient condition on transfer: Stable Prescriptions/Referrals Prescriptions/Med Rec: New ibuprofen 800 mg tablet 800 mg PO Q6H MDD 4 PRN (Reason: pain) Qty: 90 0RF docusate sodium [Colace] 100 mg capsule 100 mg PO BID Qty: 60 0RF lanolin 50 % ointment 1 applic topical TID PRN (Reason: skin irritation) Qty: 15 0RF Continued PNV cmb#95-ferrous fumarate-FA [] 28 mg iron- 800 mcg tablet 1 tab PO QDAY Referrals: No Primary/Family,Physician [Referring Provider] - Tia Yoder CNM [Certified Nurse Production Drilling Machine Operator] - Patient/Caregiver Discharge Instructions Meds to Beds: Yes Discharge Activity: activity as tolerated Other Discharge Activity Instructions:: Follow-up with Tia Yoder CNM in 3 weeks Education Materials: After a Vaginal , : Caring for Yourself, Understanding Blues, Depression, After Delivery [place] Concerns, Breast Care After , Understanding Depression, Feel Healthy After Print Language: Bruneian Stand Alone Forms: Martha Award Info., Patient Portal Info Letter Planned Discharge Date 06/14/24
[2024-06-14 08:00] VITALS: BP 111/65; PULSE 62; RESP 16; TEMP 36.7; O2SAT 98
[2024-06-14] MEDS: ACETAMINOPHEN 325 MG TABLET 650 MG PO (08:23)
[2024-06-14] MEDS: DOCUSATE SOD 100 MG CAPSULE PO (08:23)
--- NOTE | 2024-06-14 10:15 | PC.SS ---
Kali received a consult for patient due to scoring 11 on the Post- Depression Screening. RESIDENTIAL CARPET INSTALLER met with patient at bedside. RESIDENTIAL CARPET INSTALLER introduced self, role and reason for visit. RESIDENTIAL CARPET INSTALLER discussed limits of confidentiality. Patient appeared alert and oriented to self, place and situation. Patient was pleasant, her mood and behavior were ordinary. Patient's thought process was logical and organized. Patient verified her address and phone number. Patient resides at home with her , Shaylee and her two children (ages: 12 y/o, and 8 y/o). She reports being independent with all her ADLs, no DME use. Patient reports that prior to admission, she was unemployed. Patient currently receives WIC. Patient denies any history or current domestic violence. Patient denied any CWS involvement. Patient denied any substance use. Patient denies any history or current mental health illnesses. She denies receiving any outpatient mental health services. Patient denies any history of suicide attempts, 5150 holds. Patient reports feeling happy and excited to return home. Patient reports having all the equipment for the baby. When medically clear, patient will return home with her and child. Patient reported that her niece, Mac will help her whens he is alone at home. Patient declined any resources.
[2024-06-14 15:47] VITALS: BP 114/67; PULSE 65; RESP 18; TEMP 36.6; O2SAT 98
== END 2024-06-14 19:00 | disposition home or self-care (01) | DRG 560 ==
LOC: S4SX 06-12 13:19 → S4NX 06-12 21:08
PROVIDERS: Nurse Practitioner Women's Health; Admitting Provider Student in an Organized Health Care Education/Training Program; PCP Family Medicine; Visit Provider Obstetrics & Gynecology
DX: O41.03X0 Oligohydramnios, third trimester, not applicable or unspecified (principal); O36.5930 Maternal care for other known or suspected poor fetal growth, third trimester, not applicable or unspecified; O24.420 Gestational diabetes mellitus in childbirth, diet controlled; Z3A.36 36 weeks gestation of pregnancy; O70.1 Second degree perineal laceration during delivery; O99.02 Anemia complicating childbirth; O99.345 Other mental disorders complicating the puerperium; F53.0 Postpartum depression; Z37.0 Single live birth
CPT/HCPCS: 36415; 59409; 85025; 86780; 86850; 86900; 86901; 94762; J0290; J2590; J2795; J3010; J3490; J7050; J7120; A9270